=== PATIENT | female | born 1995 | race African-American/Black ===

== ENCOUNTER 2021-01-24 10:07 | Emergency (ER) ==
[2021-01-24 15:08] LABS: SARS-CoV-2 PCR by NAA Not Detected (NotDetected)
== END 2021-01-24 11:25 | disposition home or self-care (01) ==
LOC: ERS 10:07
DX: B34.9 Viral infection, unspecified (principal); Z20.822 Contact with and (suspected) exposure to COVID-19; J45.909 Unspecified asthma, uncomplicated; Z79.899 Other long term (current) drug therapy
CPT/HCPCS: 99284; U0003; U0005